=== PATIENT | male | born 1985 | race American Indian/Alaskan Native ===

== ENCOUNTER 2022-04-05 23:57 | Emergency (ER) | payer OTHER ==
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
[2022-04-06 06:39] VITALS: BP 132/68
== END 2022-04-06 06:51 | disposition home or self-care (01) ==
LOC: ED 23:57
DX: M54.50 Low back pain, unspecified (principal); V87.7XXA Person injured in collision between other specified motor vehicles (traffic), initial encounter; Y93.89 Activity, other specified; Y92.488 Other paved roadways as the place of occurrence of the external cause; Y99.8 Other external cause status
CPT/HCPCS: 72040; 72100; 99283